=== PATIENT | female | born 1965 | race African-American/Black ===

== ENCOUNTER 2017-04-05 22:17 | Emergency (ER) | payer OTHER ==
[~2017-04-05] VITALS: Ht 165.1 cm; Wt 77.0 kg
[~2017-04-05 22:17] MED LIST: FERR325T23 PO; OMEP20CA4 PO
[2017-04-06 01:09] VITALS: BP 128/71
== END 2017-04-06 01:09 | disposition home or self-care (01) ==
LOC: ER 23:21
DX: M25.522 Pain in left elbow (principal); J45.909 Unspecified asthma, uncomplicated; W22.8XXA Striking against or struck by other objects, initial encounter; Y93.9 Activity, unspecified; Y92.9 Unspecified place or not applicable
CPT/HCPCS: 73080; 99284; A4565